=== PATIENT | female | born 1950 | race Caucasian/White ===

== ENCOUNTER 2017-01-05 19:49 | Emergency (ER) | payer OTHER ==
[2017-01-05 19:57] VITALS: BMI 28.3
[2017-01-05 20:15] LABS: URINE APPEARANCE CLEAR; URINE BILIRUBIN NEGATIVE (NEGATIVE); URINE BLOOD NEGATIVE (NEGATIVE); URINE COLOR COLORLESS; URINE GLUCOSE (UA) NEGATIVE (NEGATIVE); URINE KETONE NEGATIVE (NEGATIVE); URINE NITRITE NEGATIVE (NEGATIVE); URINE PROTEIN NEGATIVE (NEGATIVE); URINE UROBILINOGEN NEGATIVE E.U./dl (0.2-1.0)
[2017-01-05 20:16] LABS: URINE LEUK ESTERASE 2+ (NEGATIVE)
[2017-01-05 20:21] LABS: URINE RBC <1 /hpf (0-3); URINE WBC 11 /hpf (3-5)
[2017-01-05] MEDS ORDERED: LEVOFLOXACIN 500 MG IVPB 100 ML IVPB ONE ×2 (21:36→21:41)
--- NOTE | 2017-01-05 21:40 | PDOC ---
History of Present Illness - General History Source: Patient, Family Exam Limitations: No Limitations - History of Present Illness Initial Comments: 01/05/17 22:36 The patient is a 66 year old female presenting with her daughter, with a significant past medical history of kidney stones, who presents to the emergency department with right sided flank pain and dysuria since yesterday. She describes her flank pain as ranging from mild to moderate, without radiation or modifying factors. She states that this pain seems similar to her past kidney stone pains. The patient denies chest pain, shortness of breath, headache and dizziness. Denies fever, chills, nausea, vomit, diarrhea and constipation. Denies frequency , urgency and hematuria. Allergies: Penicillin Past surgical history: None reported Social history: No alcohol, tobacco or drug use reported PMD - Dr. Diego <Richard Robb - Last Filed: 01/05/17 22:36> <Jayla Sy - Last Filed: 01/06/17 06:26> - General Chief Complaint: Urinary Problem Stated Complaint: BACK PAIN Time Seen by Provider: 01/05/17 20:01 Past History <Richard Robb - Last Filed: 01/05/17 22:36> - Psycho/Social/Smoking Cessation Hx Suicidal Ideation: No Smoking History: Never smoked <Jayla Sy - Last Filed: 01/06/17 06:26> - Past Medical History Allergies/Adverse Reactions: Allergies Allergy/AdvReac Type Severity Reaction Status Date / Time Penicillins Allergy Verified 01/05/17 19:56 Home Medications: Ambulatory Orders Levofloxacin [Levaquin] 500 mg PO DAILY #7 tablet 01/05/17 Tamsulosin HCl [Flomax] 0.4 mg PO DAILY #7 cap.er.24h 01/05/17 Review of Systems - Review of Systems Able to Perform ROS?: Yes Comments:: 01/05/17 22:36 ENERAL/CONSTITUTIONAL: No fever or chills. No weakness. HEAD, EYES, EARS, NOSE AND THROAT: No change in vision. No ear pain or discharge. No sore throat. CARDIOVASCULAR: No chest pain or shortness of breath RESPIRATORY: No cough, wheezing, or hemoptysis. GASTROINTESTINAL: No nausea, vomiting, diarrhea or constipation. GENITOURINARY: +Right flank pain and dysuria. No frequency, or change in urination. MUSCULOSKELETAL: No joint or muscle swelling or pain. No neck or back pain. SKIN: No rash NEUROLOGIC: No headache, vertigo, loss of consciousness, or change in strength/ sensation. ENDOCRINE: No increased thirst. No abnormal weight change HEMATOLOGIC/LYMPHATIC: No anemia, easy bleeding, or history of blood clots. ALLERGIC/IMMUNOLOGIC: No hives or skin allergy. <Richard Robb - Last Filed: 01/05/17 22:36> *Physical Exam - Vital Signs Last Vital Signs Temp Pulse Resp BP Pulse Ox 98 F 76 18 130/70 98 01/05/17 19:56 01/05/17 19:56 01/05/17 19:56 01/05/17 19:56 01/05/17 19:56 - Physical Exam Comments: 01/05/17 22:37 GENERAL: Awake, alert, and fully oriented, in no acute distress HEAD: No signs of trauma, normocephalic, atraumatic EYES: PERRLA, EOMI, sclera anicteric, conjunctiva clear ENT: Auricles normal inspection, hearing grossly normal, nares patent, oropharynx clear without exudates. Moist mucosa NECK: Normal ROM, supple, no lymphadenopathy, JVD, or masses LUNGS: No distress, speaks full sentences, clear to auscultation bilaterally HEART: Regular rate and rhythm, normal S1 and S2, no murmurs, rubs or gallops, peripheral pulses normal and equal bilaterally. ABDOMEN: Soft, nontender, normoactive bowel sounds. No guarding, no rebound. No masses EXTREMITIES: Normal inspection, Normal range of motion, no edema. No clubbing or cyanosis. NEUROLOGICAL: Cranial nerves II through XII grossly intact. Normal speech, normal gait, no focal sensorimotor deficits SKIN: Warm, Dry, normal turgor, no rashes or lesions noted. <Richard Robb - Last Filed: 01/05/17 22:36> - Vital Signs Last Vital Signs Temp Pulse Resp BP Pulse Ox 98 F 76 18 130/70 98 01/05/17 19:56 01/05/17 19:56 01/05/17 19:56 01/05/17 19:56 01/05/17 19:56 <Jayla Sy - Last Filed: 01/06/17 06:26> ED Treatment Course - LABORATORY CBC & Chemistry Diagram: 01/05/17 21:50 01/05/17 21:50 - ADDITIONAL ORDERS Additional order review: Laboratory Results 01/05/17 01/05/17 21:50 20:07 Sodium 140 Potassium 4.7 Chloride 103 Carbon Dioxide 30 Anion Gap 7 L BUN 15 Creatinine 1.1 H Creat Clearance w eGFR 49.85 Random Glucose 109 H Calcium 8.6 Total Bilirubin 0.2 AST 15 ALT 22 Alkaline Phosphatase 95 Total Protein 6.8 Albumin 3.9 Urine Color Colorless Urine Appearance Clear Urine pH 7.0 Ur Specific [place] 1.004 Urine Protein Negative Urine Glucose (UA) Negative Urine Ketones Negative Urine Blood Negative Urine Nitrite Negative Urine Bilirubin Negative Urine Urobilinogen Negative Ur Leukocyte Esterase 2+ H Urine RBC <1 Urine WBC 11 Ur Epithelial Cells Rare 01/05/17 21:50 RBC 4.22 MCV 91.4 MCHC 33.6 RDW 13.1 MPV 8.2 Neutrophils % 60.1 Lymphocytes % 27.6 Monocytes % 9.1 Eosinophils % 2.3 Basophils % 0.9 - Medications Given in the ED: ED Medications Discontinued Medications Generic Name Dose Route Start Last Admin Trade Name Freq PRN Reason Stop Dose Admin Levofloxacin 100 mls @ 100 mls/hr 01/05/17 21:36 01/05/17 21:51 Levaquin 500 Mg Premixed Ivpb - IVPB 01/05/17 22:35 100 mls/hr ONCE ONE Administration <Richard Robb - Last Filed: 01/05/17 22:36> - LABORATORY CBC & Chemistry Diagram: 01/05/17 21:50 01/05/17 21:50 - ADDITIONAL ORDERS Additional order review: Laboratory Results 01/05/17 20:07 Urine Color Colorless Urine Appearance Clear Urine pH 7.0 Ur Specific [place] 1.004 Urine Protein Negative Urine Glucose (UA) Negative Urine Ketones Negative Urine Blood Negative Urine Nitrite Negative Urine Bilirubin Negative Urine Urobilinogen Negative Ur Leukocyte Esterase 2+ H Urine RBC <1 Urine WBC 11 Ur Epithelial Cells Rare - RADIOLOGY Radiology Studies Ordered: Category Date Time Status ABDOMEN & PELVIS CT W/O CONTR [CT] Stat CT Scan 01/05/17 21:36 Ordered <Jayla Sy - Last Filed: 01/06/17 06:26> Medical Decision Making - Medical Decision Making 01/05/17 22:57 Patient Name: Kashif Oswald THIS IS A PRELIMINARY REPORT FROM [facility] EXAM: CT abdomen and pelvis without contrast IMAGES: [id number] DATE OF EXAM: 2016-12 22:10:55.0 REASON FOR EXAM: Rule out kidney stone COMPARISON: None Findings: Atelectasis and scarring are noted in the lung bases. No pleural effusions. Mild hepatomegaly. Cholecystectomy. The pancreas, adrenal glands, and spleen are unremarkable. Indeterminate bilateral renal cysts. 5 mm calculus in distal left ureter near ureterovesical junction. No significant renal obstruction. No intrarenal calculi. Moderate colonic diverticulosis without diverticulitis. No evidence for appendicitis, small bowel obstruction, free fluid, or free air. THIS DOCUMENT HAS BEEN ELECTRONICALLY SIGNED 01/06/17 06:22 Pt comes with flank pain and dysuria. She has no history of stones. SHe has no fever. SHe has no other complaints, She is able to eat and she is well hydrated. Pt has normal labs and she has a UTI as per UA. She has a 5mm NONOBSTRUCTING stone. At the [facility]. SHe will be treated with NSS and with flomax. She received IV abx and she will be sent home with PO levaquin. <Jayla Sy - Last Filed: 01/06/17 06:26> *DC/Admit/Observation/Transfer - Attestations Scribe Attestion: 01/05/17 22:37 Documentation prepared by Richard Robb, acting as medical insurance claims processor for Jayla Sy MD <Richard Robb - Last Filed: 01/05/17 22:36> - Discharge Dispostion Admit: No <Jayla Sy - Last Filed: 01/06/17 06:26> Diagnosis at time of Disposition: Kidney stone, UTI (urinary tract infection) - Discharge Dispostion Disposition: HOME Condition at time of disposition: Stable - Prescriptions Prescriptions: Tamsulosin HCl [Flomax] 0.4 mg PO DAILY #7 cap.er.24h Levofloxacin [Levaquin] 500 mg PO DAILY #7 tablet - Patient Instructions Printed Discharge Instructions: Kidney Stones -- Adult, Urinary Tract Infection
[2017-01-05 21:55] LABS: BASOPHIL 0.9 % (0-2.0); EOSINOPHIL 2.3 % (0-4.5); MCH 30.7 pg (25.7-33.7); MCHC 33.6 g/dl (32.0-36.0); MEAN CELL VOLUME 91.4 fl (80-96); MEAN PLT VOLUME 8.2 fl (7.5-11.1); NEUTROPHILS 60.1 % (42.8-82.8); PLATELET COUNT 236 K/MM3 (134-434); RDW 13.1 % (11.6-15.6); WHITE BLOOD COUNT 8.9 K/mm3 (4.0-10.0)
[2017-01-05 22:24] LABS: ALBUMIN 3.9 g/dl (3.4-5.0); BILIRUBIN,TOTAL 0.2 mg/dL (0.2-1.0); CALCIUM 8.6 mg/dL (8.5-10.1); COCKROFT - GAULT 54.7655; CREATININE 1.1 mg/dL (0.55-1.02); TOT PROT 6.8 g/dl (6.4-8.2)
[2017-01-05] MEDS ORDERED: TAMSULOSIN HCL 0.4 MG CAP.ER.24H (FP) PO ONE (22:58)
[2017-01-05] MEDS ORDERED: SODIUM CHLORIDE 0.9% 500 ML INFUS.BAG IV ONE (23:00)
[2017-01-05] MEDS ORDERED: TAMSULOSIN HCL 0.4 MG CAP.ER.24H (FP) ONE (23:01)
[2017-01-05 23:45] VITALS: BP 150/74; PULSE 79; TEMP 98.3
== END 2017-01-05 23:48 | disposition home or self-care (01) ==
LOC: JER 19:49 → JERFT 19:49 → JER 23:48
DX: N39.0 Urinary tract infection, site not specified (principal); N20.0 Calculus of kidney
CPT/HCPCS: 36415; 74176-TC; 80053; 81003; 81015; 85025; 87086; 96365; 99283-25